=== PATIENT | female | born 1990 | race Caucasian/White ===

== ENCOUNTER 2023-01-01 05:10 | Inpatient (IN) | payer OTHER ==
[2023-01-01 07:39] LABS: BASO % 0.4 % (0-2.0); EOS % 0.1 % (0-4.5); HEMATOCRIT 27.7 % (32.4-45.2); HEMOGLOBIN 9.1 GM/dL (10.7-15.3); MCHC 32.8 g/dl (32.0-36.0); MEAN CELL VOLUME 58.2 fl (80-96); MEAN PLT VOLUME 9.3 fl (7.5-11.1); MONO % 4.4 % (3.8-10.2); NEUT % 83.1 % (42.8-82.8); PLATELET COUNT 340 10^3/uL (134-434); RBC 4.76 M/mm3 (3.60-5.2); RDW 17.6 % (11.6-15.6); WHITE BLOOD COUNT 11.6 K/mm3 (4.0-10.0)
[2023-01-01 07:40] LABS: MCH 19.1 pg (25.7-33.7)
[2023-01-01 07:49] VITALS: BMI 35.6
[2023-01-01 07:49] LABS: POTASSIUM 4.1 mmol/L (3.5-5.1)
[2023-01-01 07:50] LABS: CALCIUM 9.1 mg/dL (8.5-10.1)
[2023-01-01 07:51] LABS: BLOOD UREA NITROGEN 6.2 mg/dL (7-18)
[2023-01-01 07:54] LABS: CREATININE 0.6 mg/dL (0.55-1.3)
[2023-01-01] MEDS ORDERED: FENTANYL/BUPIVACAINE/NS/PF - PCEA - 50 ML DISP.SYRIN EP ONE ×3 (07:56→16:17)
[2023-01-01 08:05] LABS: INR 1.07 (0.83-1.09); PROTHROMBIN TIME (PATIENT) 12.4 SEC (9.7-13.0)
[2023-01-01] MEDS: ELECTROLYTE-148 SOLN 1,000 ML IV SCH ×2 (08:05→09:02)
[2023-01-01 08:08] LABS: ACTIVATED PTT 30.4 SECONDS (25.2-36.5)
[2023-01-01] MEDS: FENTANYL/BUPIVACAINE/NS/PF - PCEA - 50 ML DISP.SYRIN EP SCH ×3 (08:35→16:15)
[2023-01-01 08:38] LABS: ANISOCYTOSIS 3+; MACROCYTOSIS 0
[2023-01-01] MEDS ORDERED: NALOXONE HCL 0.4 MG/ML VIAL IVPUSH PRN (08:42)
[2023-01-01] MEDS ORDERED: OXYTOCIN 30 UNITS in 0.9% NS 30 UNIT/500 ML INFUS.BAG IVPB ONE (09:53)
[2023-01-01] MEDS ORDERED: ELECTROLYTE-148 SOLN 1,000 ML IV SCH (10:00)
[2023-01-01] MEDS ORDERED: OXYTOCIN 30 UNITS in 0.9% NS 30 UNIT/500 ML INFUS.BAG IVPB SCH (10:00)
[2023-01-01 12:00] LABS: HIV INTERPRETATION NEGATIVE (NEGATIVE)
[2023-01-01] MEDS ORDERED: CITRIC ACID/SODIUM CITRATE 30 ML UNIT-DOSE CUP PO ONE (13:00)
[2023-01-01] MEDS ORDERED: OXYTOCIN 20 UNITS in 0.9% NS 20 UNIT/1,000 ML INFUS.BAG IV ONE (16:22)
[2023-01-01] MEDS ORDERED: METHYLERGONOVINE MALEATE 0.2 MG/1 ML AMP IM PRN (17:32)
[2023-01-01] MEDS ORDERED: oxyCODONE HCL 5 MG TABLET PO PRN (17:32)
[2023-01-01] MEDS ORDERED: BENZOCAINE 20% 57 GM BOTTLE TP PRN (17:32)
[2023-01-01] MEDS ORDERED: ACETAMINOPHEN 325 MG TABLET (FP) PO PRN (17:32)
[2023-01-01] MEDS ORDERED: BENZOCAINE 28 GM HEMORRHOIDAL OINTMENT TP PRN (17:32)
[2023-01-01] MEDS ORDERED: WITCH HAZEL 50% (TUCKS) 40 PAD/JAR PAD TP PRN (17:32)
[2023-01-01] MEDS ORDERED: BISACODYL 10 MG SUPP.RECT RC PRN (17:32)
[2023-01-01] MEDS ORDERED: OXYTOCIN 20 UNITS in 0.9% NS 20 UNIT/1,000 ML INFUS.BAG IV SCH (17:45)
[2023-01-01 19:57] VITALS: RESP 18
[2023-01-01] MEDS: FERROUS SO4 325 MG TABLET (FP) PO SCH (23:00)
[2023-01-02 06:45] LABS: BASO % 0.3 % (0-2.0); EOS % 0.3 % (0-4.5); HEMATOCRIT 24.8 % (32.4-45.2); HEMOGLOBIN 8.1 GM/dL (10.7-15.3); LYMPH % 18.1 % (8-40); MCHC 32.6 g/dl (32.0-36.0); MEAN CELL VOLUME 58.3 fl (80-96); MEAN PLT VOLUME 9.6 fl (7.5-11.1); MONO % 6.3 % (3.8-10.2); PLATELET COUNT 314 10^3/uL (134-434); RBC 4.25 M/mm3 (3.60-5.2); RDW 17.7 % (11.6-15.6); WHITE BLOOD COUNT 13.6 K/mm3 (4.0-10.0)
[2023-01-02] MEDS: IBUPROFEN 600 MG TABLET (FP) PO PRN ×2 (09:09→21:56)
[2023-01-02] MEDS: FERROUS SO4 325 MG TABLET (FP) PO SCH ×2 (09:09→21:58)
[2023-01-02] MEDS: PRENATAL VITAMINS W/ FOLIC ACID TABLET (FP) PO SCH (09:09)
[2023-01-02] MEDS ORDERED: SENNOSIDES/DOCUSATE COMBO (SENNA PLUS) TABLET (UD) PO PRN (22:00)
[2023-01-02 23:10] VITALS: PULSE 90; TEMP 98.2
[2023-01-03 09:31] VITALS: BP 122/67
[2023-01-03] MEDS: FERROUS SO4 325 MG TABLET (FP) PO SCH (09:47)
[2023-01-03] MEDS: PRENATAL VITAMINS W/ FOLIC ACID TABLET (FP) PO SCH (09:47)
[2023-01-03] MEDS: IBUPROFEN 600 MG TABLET (FP) PO PRN (09:47)
== END 2023-01-03 12:10 | disposition home or self-care (01) | DRG 560 ==
LOC: JLDR 05:10 → J3W 19:30
PROVIDERS: ADMIT Obstetrics & Gynecology; ATTEND Obstetrics & Gynecology
PROC: 10E0XZZ Delivery of Products of Conception, External Approach (ICD-10-PCS; principal; 2023-01-01)
PROC: 0HQ9XZZ Repair Perineum Skin, External Approach (ICD-10-PCS; 2023-01-01)
PROC: 0W8NXZZ Division of Female Perineum, External Approach (ICD-10-PCS; 2023-01-01)
DX: O70.0 First degree perineal laceration during delivery (principal); Z3A.39 39 weeks gestation of pregnancy; Z37.0 Single live birth
CPT/HCPCS: 36415; 59025; 76819-TC; 80048; 83986-QW; 85025; 85610; 85730; 86780; 86850; 86900; 86901; 87389; C9803-CS; U0003; U0005